=== PATIENT | female | born 1930 | race Caucasian/White ===

== ENCOUNTER 2017-06-14 17:05 | Emergency (ER) | payer MEDICARE, OTHER ==
--- NOTE | 2017-06-14 17:08 | ED Physician Documentation ---
General Adult - HISTORIAN Historian: patient - HPI Stated Complaint: right hip pain Chief Complaint: Hip Pain Onset: days ago (2) Timing: pain intermittent Severity: mild Further Comments: yes (She states she got up on Saturday and she had a pain in her right hip /groin. Denies any injury. She states she has had pain in the past due to bone fragments . She denies any redness or warmth . She has no swelling. She has not tried any OTC meds) - ROS CONST: no problems EYES/ENT: none CVS/RESP: none GI/: none MS/SKIN/LYMPH: none NEURO/PSYCH: denies: headache, fainting, dizziness - PAST HX Past History: other Other History: other Surgeries/Procedures: other (right hip replacement ) Allergies/Adverse Reactions: Allergies Allergy/AdvReac Type Severity Reaction Status Date / Time kiwi Allergy Verified 06/14/17 17:32 [Kiwi (Actinidia Chinensis)] naproxen sodium [From Aleve] Allergy Verified 06/14/17 17:32 Penicillins Allergy Verified 06/14/17 17:32 Home Medications: Ambulatory Orders Medication Instructions Recorded Diltiazem HCl [Cardizem CD] 1 cap PO DAILY 11/02/12 Olmesartan/Hydrochlorothiazide 1 tab PO DAILY 11/02/12 [Benicar Hct 40-25 mg Tablet] - SOCIAL HX Smoking History: non-smoker - FAMILY HX Family History: No - VITAL SIGNS Vital Signs: Vital Signs Temp Pulse Resp BP Pulse Ox 140/50 11/02/12 14:06 - REVIEWED ASSESSMENTS Nursing Assessment Reviewed: Yes Vitals Reviewed: Yes ED Results Lab/Radiology - Radiology Radiology Impressions: Examination: Plain film hip History: Hip discomfort Comparison exams: None provided Findings: 2 views of the hip demonstrates hip replacement in place. Proximal femoral dystrophic calcifications. No acute appearing fracture line. No femoral replacement head dislocation. Generalized osteopenia. No overt soft tissue abnormality. Impression: Hip replacement. Degenerative dystrophic calcification formation. No acute appearing fracture line. No dislocation. Electronically signed on Jun 14, 2017 6:01:23 PM [employer] by: Dereje Michael General Adult Physical Exam - PHYSICAL EXAM GENERAL APPEARANCE: no distress NECK: normal inspection RESPIRATORY: no resp distress, chest non-tender, breath sounds normal CVS: reg rate & rhythm, heart sounds normal, equal pulses, no murmur ABDOMEN: soft EXTREMITIES: non-tender, normal range of motion, other (pain with standing on right hip/groin. No redness or streaking noted. Pulses + cap refill + sensaion + ) NEURO: oriented X3, CN's nml as tested, motor nml Discharge Clincal Impression: Right hip pain Referrals: Primary Doctor,No [REFERRING] - 2 Days Condition: Stable Disposition: 01 HOME, SELF-CARE Decision to Admit: NO Date of Decison to Admit: 06/14/17 Decision Time: 18:11
[2017-06-14 18:24] VITALS: BP 150/68
--- NOTE | 2017-06-14 19:17 | Diagnostic Imaging Report ---
YVONNE RODRIGUEZ [facility] [address] [facility] [address] [place], [place]. [address] Report Submission Date: Jun 14, 2017 6:01:23 PM [employer] Patient Study Name: ALIA ZUÑIGA Date: Jun 14, 2017 5:45:52 PM [employer] Modality Type: CR Gender: F Description: PELVIS : [birth year] Institution: [facility] Physician: YVONNE RODRIGUEZ Examination: Plain film hip History: Hip discomfort Comparison exams: None provided Findings: 2 views of the hip demonstrates hip replacement in place. Proximal femoral dystrophic calcifications. No acute appearing fracture line. No femoral replacement head dislocation. Generalized osteopenia. No overt soft tissue abnormality. Impression: Hip replacement. Degenerative dystrophic calcification formation. No acute appearing fracture line. No dislocation. Electronically signed on Jun 14, 2017 6:01:23 PM [employer] by: Dereje MILLER
== END 2017-06-14 18:22 | disposition home or self-care (01) ==
LOC: ED 17:05
DX: M25.551 Pain in right hip (principal)
CPT/HCPCS: 73502; 99282